=== PATIENT | male | born 1940 | race Caucasian/White ===

== ENCOUNTER 2016-10-29 09:15 | Emergency (ER) | payer MEDICARE, OTHER ==
[~2016-10-29] VITALS: Ht 188 cm; Wt 95.0 kg
[2016-10-29 09:18] VITALS: BP 160/77; PULSE 66; RESP 18; TEMP 97.6; O2SAT 99
--- NOTE | 2016-10-29 10:26 | PD ---
HPI Chief Complaint: Pain: Acute or Chronic Time Seen by Provider: 10:18 Travel History International Travel<30 days: No Contact w/Intl Traveler<30days: No Traveled to known affect area: No History of Present Illness HPI 76-year-old male presents to the emergency Department with complaint of right leg swelling since yesterday. Had an ankle injury about 3 weeks ago with swelling of the ankle which has improved. Noticed the swelling of his right leg yesterday. Denies leg pain. Reports continued ankle pain but has improved and with more range of motion also. Patient is ambulatory on the affected extremity. Denies leg pain with walking. Denies anticoagulants. Denies history of DVT or PE. Denies chest pain, shortness of breath, hemoptysis. Denies fever, chills, nausea, vomiting. Denies paresthesias, loss of sensation , decreased range of motion, decreased strength to the affected extremity. Has been traveling by car and plain for greater than 3 hours in the last 4 weeks, multiple times. Denies recent hospitalization or surgery. Has a titanium plate in his right knee and takes meloxicam for chronic knee pain. Has not taken any other medications or tried any other treatments to alleviate his symptoms. No known aggravating or relieving factors. Does not primary care provider in this area. History of diabetes but was able to get under control with diet and does not take medications. No known allergies. No other modifying factors or associated signs and symptoms. [facility] Social History Tobacco Use: No Allergies-Medications (Allergen,Severity, Reaction): Coded Allergies: No Known Allergies (Unverified , 10/29/16) Reported Meds & Prescriptions Reported Meds & Active Scripts Active No Active Prescriptions or Reported Medications Review of Systems Except as stated in HPI: all other systems reviewed are Neg Physical Exam Narrative GENERAL: Well-nourished, well-developed male patient, in no acute distress; afebrile, nontoxic-appearing SKIN: Warm and dry. HEAD: Atraumatic. Normocephalic. EYES: Pupils equal and round. No scleral icterus. No injection or drainage. ENT: Mucosa pink and moist. Airway patent. NECK: Trachea midline. CARDIOVASCULAR: Regular rate. RESPIRATORY: No accessory muscle use. GASTROINTESTINAL: Flat. MUSCULOSKELETAL: Right lower extremity supple and non-tense with 2+ pedal pulse and sensory intact without erythema. The lower extremity is noticeably edematous compared to the left lower extremity. Right lower extremity with Nonpitting edema. No reproducible tenderness on palpation to the posterior upper calf. No obvious deformities. No clubbing. No cyanosis. No edema. NEUROLOGICAL: Awake and alert. Oriented 3. No obvious cranial nerve deficits. Motor grossly within normal limits. Normal speech. PSYCHIATRIC: Appropriate mood and affect; insight and judgment normal. Data Data Last Documented VS Vital Signs Date Time Temp Pulse Resp B/P Pulse Ox O2 Delivery O2 Flow Rate FiO2 10/29/16 09:18 97.6 66 18 160/77 99 Room Air Orders Us Leg Venous Doppler (10/29/16 ) [facility] Medical Decision Making Medical Screen Exam Complete: Yes Emergency Medical Condition: Yes Medical Record Reviewed: Yes Differential Diagnosis Leg edema, superficial venous thrombosis, DVT, soft tissue swelling Narrative Course 76-year-old male with right lower extremity leg edema that is nonpitting since yesterday. He did have a right ankle injury 3 weeks ago which is improving. The right lower lobes with a supple nontender 2+ pedal pulse and sensory intact and without erythema. No reproducible tenderness to the posterior calf. Patient denies history of DVT or PE. He does not take anticoagulants. He has been on multiple trips by car and plain greater than 3 hours in the last 4 weeks. No hospitalization or surgeries in the past 4 weeks. Denies chest pain or shortness of breath. Right venous leg ultrasound ordered to rule out thrombosis. 1107: Right leg venous ultrasound concluded Occlusive thrombus in the right posterior tibial vein. The remainder of the deep venous system is patent. 1115: I spoke with Dr. Romo, and he is going to come to bedside to evaluate the patient. 1306: Patient decided he wanted to leave AMA at this time. AMA: The risks of leaving against medical advice without further evaluation treatment were discussed with the patient. These risks include cardiac dysfunction, cardiac dysrhythmia, possible heart attack, possible stroke or . The patient indicated understanding of these risks and appeared to have the capacity to make this decision. Diagnosis Primary Impression: Left against medical advice Scripts No Active Prescriptions or Reported Meds Disposition: 07 AGAINST MEDICAL ADVICE Le Magdaleno Oct 29, 2016 10:26
--- NOTE | 2016-10-29 10:57 | RADRPT ---
EXAM DATE/TIME: 10/29/2016 10:18 [place] COMPARISON: No previous studies available for comparison. INDICATIONS : Right leg swelling. MEDICAL HISTORY : Right leg swelling. SURGICAL HISTORY : Total knee replacement, right. ENCOUNTER: Initial ACUITY: 1 day PAIN SCORE: 3/10 LOCATION: Right leg. TECHNIQUE: Venous ultrasound of the leg was performed from the inguinal ligament to the proximal calf. Real-yola e, color Doppler and spectral tracing, compression and augmentation techniques were used. FINDINGS: There is normal compressibility of the deep venous system from the inguinal region to the proximal ca lf. No echogenic clot is seen in the lumen of the common femoral, femoral, and popliteal veins. Ther e is occlusive thrombus in the right posterior tibial vein which is noncompressible. There is a rosa l response of the venous system to proximal and distal augmentation and respiration. CONCLUSION: Occlusive thrombus in the right posterior tibial vein. The remainder of the deep venous system is pat ent. Robbin Ybarra MD on October 29, 2016 at 10:50 Board Certified Radiologist. This report was verified electronically.
== END 2016-10-29 13:12 | disposition left against medical advice (07) ==
LOC: NEPB 09:15
DX: I82.441 Acute embolism and thrombosis of right tibial vein (principal)
CPT/HCPCS: 93971